=== PATIENT | male | born 1950 | race Caucasian/White ===

== ENCOUNTER 2018-06-06 20:51 | Emergency (ER) | payer MEDICARE, MEDICAID ==
[2018-06-06 21:01] VITALS: BP 154/98
--- NOTE | 2018-06-06 21:42 | UC ---
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 THINKS IT ATTACHED EARLIER TODAY HE WAS OUTSIDE DOING YARDWORK. GIRLFRIEND ATTEMPTED TO REMOVE IT BUT TICK PARTS REMAINING EMBEDDED. - History of Current Complaint Chief Complaint: UCSkin Time Seen by Provider: 06/06/18 21:15 Stated Complaint: TICK BITE Hx Obtained From: Patient Onset/Duration: Lasting Hours, Still Present Timing: Constant Onset Severity: Mild Current Severity: Mild Pain Intensity: 0 Pain Scale Used: 0-10 Numeric Location: Discrete - LEFT ANTERIOR CHEST Character: Redness, Painful Aggravating Factor(s): Touch Alleviating Factor(s): Nothing Associated Signs & Symptoms: Positive: Tenderness. Negative: Nausea, Fever Related History: Insect Bite/Sting - Allergy/Home Medications Allergies/Adverse Reactions: Allergies Allergy/AdvReac Type Severity Reaction Status Date / Time Penicillins Allergy Rash Verified 06/06/18 21:00 Home Medications: Home Medications Levothyroxine TAB* [Synthroid 100 MCG TAB*] 100 mg PO DAILY 06/06/18 [History Confirmed 06/06/18] Pravastatin Sodium 20 mg PO DAILY 06/06/18 [History Confirmed 06/06/18] PMH/Surg Hx/FS Hx/Imm Hx Endocrine History: Hypothyroidism, Dyslipidemia - Surgical History Surgical History: None Surgery Procedure, Year, and Place: DENIES - Family History Known Family History: Positive: Non-Contributory - Social History Alcohol Use: Weekly Substance Use Type: Marijuana Substance Use Comment - Amount & Last Used: rarely Smoking Status (MU): Never Smoked Tobacco Review of Systems All Other Systems Reviewed And Are Negative: Yes Constitutional: Positive: Negative Skin: Positive: Other - TICK ATTACHMENT SITE LEFT ANTERIOR CHEST Respiratory: Positive: Negative Cardiovascular: Positive: Negative Gastrointestinal: Positive: Negative Musculoskeletal: Positive: Negative Neurological: Positive: Negative Physical Exam Triage Information Reviewed: Yes Appearance: Well-Appearing, No Pain Distress, Well-Nourished Vital Signs: Initial Vital Signs Temp 98 F 06/06/18 20:52 Pulse 58 06/06/18 20:52 Resp 16 06/06/18 20:52 BP 154/98 06/06/18 20:52 Pulse Ox 98 06/06/18 20:52 Vital Signs Reviewed: Yes Eyes: Positive: Conjunctiva Clear ENT: Positive: Hearing grossly normal Neck: Positive: Supple Respiratory: Positive: No respiratory distress, No accessory muscle use Cardiovascular: Positive: Pulses Normal Abdomen Description: Positive: Soft Musculoskeletal: Positive: No Edema Neurological: Positive: Alert Psychological: Positive: Age Appropriate Behavior Skin: Positive: Other - TICK ATTACHMENT SITE LEFT ANTERIOR CHEST WITH RETAINED TICK PARTS AND 2CM SURROUNDING AREA OF LOCAL ERYTHEMA. Course/Dx - Course Course Of Treatment: COUNSELED PT EXTENSIVELY ON LOW RISK OF BLAS LYME DISEASE FROM THIS TICK. TICK WAS NOT ENGORGED SO UNLIKELY TO HAVE BEEN ATTACHED FOR REQUISITE AMOUNT OF TIME TO TRANSMIT DISEASE. NO INCREASED RISK OF DEVELOPING LYME WITH RETAINED TICK PARTS. NO INDICATION TO REMOVE THEM HOWEVER PT PREFERS I REMOVE THEM. TICK PARTS ENTIRELY REMOVED USING 18 GAUGE NEEDLE AND SPLINTER FORCEPS. USE TICK TWISTER TO HELP REMOVE ANY FUTURE TICKS. KEEP THE AREA CLEAN AND BE VIGILANT OF SX OVER THE NEXT 4-6 WEEKS. PT DOES NOT MEET CRITERIA FOR PROPHYLAXIS WITH DOXY. ALL QUESTIONS ANSWERED AND PT COMFORTABLE WITH CAREFUL OBSERVATION AT HOME. - Diagnoses Provider Diagnosis: Tick bite of chest wall Discharge - Sign-Out/Discharge Documenting (check all that apply): Patient Departure All imaging exams completed and their final reports reviewed: No Studies - Discharge Plan Condition: Stable Disposition: HOME Patient Education Materials: Tick Bite (ED) Referrals: Thomas Talamantes MD [Primary Care Provider] - If Needed Additional Instructions: APPLY A THIN LAYER OF ANTIBIOTIC OINTMENT TO THE AREA TWICE DAILY UNTIL HEALED. I RECOMMEND AVOIDING NEOMYCIN CONTAINING PRODUCTS THEY ARE HIGHLY ALLERGENIC. The Infectious Disease Society of [place] (IDSA) does not generally recommend antimicrobial prophylaxis for prevention of Lyme disease after a recognized tick bite. However, in areas that are highly endemic for Lyme disease, a single dose of doxycycline may be offered to adult patients (200 mg) who are not and to children older than 8 years of age (4 mg/kg up to a maximum dose of 200 mg) when all of the following circumstances exist: CRITERIA FOR RECEIVING PROPHYLACTIC TREATMENT FOR LYME DISEASE 1) TICK ATTACHED FOR AT LEAST 36 HRS 2) TICK IS AN ADULT OR [place] DEER TICK 3) YOU LIVE IN AN AREA WHERE LYME DISEASE IS PREVALENT (i.e., [place], [place], [place], , [place] , [place], [place], [place], [place], [place], [place], [place], [place], [place]) 4) YOU HAVE NO CONTRAINDICATION TO THE MEDICATION (DOXYCYCLINE) 5) PROPHYLAXIS IS BEGUN WITHIN 72 HRS OF TICK REMOVAL SINCE YOU DO NOT MEET ALL THESE CRITERIA THERE IS NO NEED TO GIVE YOU PROPHYLACTIC ANTIBIOTICS. YOUR CHANCES OF DEVELOPING LYME DISEASE FROM THIS TICK ARE EXTREMELY SMALL. HOWEVER, 1 TICK MEANS THERE MAY HAVE BEEN OTHER TICKS OF WHICH YOU WEREN'T AWARE. SO BE VIGILANT OF YOUR SYMPTOMS AND DON'T HESITATE TO GET SEEN AGAIN IF YOU DEVELOP UNEXPLAINED FEVER, HEADACHE, JOINT PAIN, BODY ACHES, RASH OR ANY OTHER CONCERNING SYMPTOMS. Antibiotic treatment following a tick bite is not recommended as a means to prevent anaplasmosis, babesiosis, ehrlichiosis, or [place] spotted fever. There is no evidence this practice is effective, and it may simply delay onset of disease. Instead, persons who experience a tick bite should be alert for symptoms suggestive of tickborne illness and consult a physician if fever, rash, headache or other symptoms of concern develop. - Billing Disposition and Condition Condition: STABLE Disposition: Home
== END 2018-06-06 21:48 | disposition home or self-care (01) ==
LOC: UCEAST 20:51
DX: S20.362A Insect bite (nonvenomous) of left front wall of thorax, initial encounter (principal); W57.XXXA Bitten or stung by nonvenomous insect and other nonvenomous arthropods, initial encounter; Y93.H9 Activity, other involving exterior property and land maintenance, building and construction; Y92.9 Unspecified place or not applicable; E03.9 Hypothyroidism, unspecified; E78.5 Hyperlipidemia, unspecified; Z88.0 Allergy status to penicillin
CPT/HCPCS: 99211; G0463

== ENCOUNTER 2022-04-03 13:53 | Inpatient (IN) ==
[2022-04-03] MEDS ORDERED: Al Hydrox/Mg Hydrox/Simet LIQ 30 ML UDC PO PRN ×2 (18:15→22:04)
[2022-04-04] MEDS: Vitamin THERAPEUTIC TAB PO SCH (08:16)
[2022-04-04] MEDS ORDERED: Vitamin THERAPEUTIC TAB PO SCH (09:00)
[2022-04-04] MEDS ORDERED: Pravastatin 20 mg TAB (NF) PO SCH (09:00)
[2022-04-04 10:43] LABS: ABS Monocytes 0.5 10^3/ul (0-0.8); ABS Neutrophils 5.9 10^3/ul (1.5-7.7); Eosinophil % 0.5 %; Hematocrit 41 % (42-52); Hemoglobin 13.7 g/dL (14.0-18.0); Lymphocyte % 12.8 %; Mean Corpuscular HGB Conc 33 g/dL (31-36); Mean Corpuscular Hemoglobin 32 pg (27-31); Mean Corpuscular Volume 95 fL (80-94); Mean Platelet Volume 8.1 fL (7.4-10.4); Platelet Count 253 10^3/uL (150-450); Red Blood Count 4.31 10^6 /uL (4.18-5.48); Red Cell Distribution Width 13 % (10-15); White Blood Count 7.5 10^3/uL (3.5-10.8)
[2022-04-04 11:40] LABS: Albumin/Globulin Ratio 1.7 (1-3); Calcium 9.2 mg/dL (8.6-10.3); Creatinine, Serum 1.03 mg/dL (0.67-1.17); Globulin 2.3 g/dL (2-4); Potassium 4.3 mmol/L (3.5-5.0); Total Bilirubin 1.1 mg/dL (0.2-1.0); Total Protein 6.3 g/dL (6.4-8.9); eGFR CKD-EPI 78.6 (>60)
[2022-04-04 11:57] LABS: Free T4 1.38 ng/dL (0.61-1.12); TSH Ultra Thyroid Stim Horm 2.07 mcIU/mL (0.34-5.60)
[2022-04-05] MEDS: Vitamin THERAPEUTIC TAB PO SCH (08:52)
[2022-04-06 08:25] LABS: HDL Cholesterol 47.4 mg/dL
[2022-04-06] MEDS: Vitamin THERAPEUTIC TAB PO SCH (08:50)
[2022-04-07] MEDS: Vitamin THERAPEUTIC TAB PO SCH (08:53)
[2022-04-08] MEDS: Vitamin THERAPEUTIC TAB PO SCH (08:37)
[2022-04-09] MEDS: Vitamin THERAPEUTIC TAB PO SCH (08:15)
[2022-04-10] MEDS: Vitamin THERAPEUTIC TAB PO SCH (08:18)
[2022-04-10] MEDS ORDERED: Psyllium PAK PO PRN (10:36)
[2022-04-11] MEDS: Vitamin THERAPEUTIC TAB PO SCH (08:29)
[2022-04-12] MEDS: Vitamin THERAPEUTIC TAB PO SCH (08:27)
[2022-04-13] MEDS: Vitamin THERAPEUTIC TAB PO SCH (07:51)
[2022-04-14] MEDS: Vitamin THERAPEUTIC TAB PO SCH (08:31)
[2022-04-14] MEDS: Psyllium PAK PO PRN (20:16)
[2022-04-15] MEDS: Vitamin THERAPEUTIC TAB PO SCH (08:49)
[2022-04-15] MEDS: Psyllium PAK PO PRN (15:13)
[2022-04-16] MEDS: Vitamin THERAPEUTIC TAB PO SCH (08:14)
[2022-04-16] MEDS: Psyllium PAK PO PRN (20:50)
[2022-04-17] MEDS: Vitamin THERAPEUTIC TAB PO SCH (07:57)
[2022-04-17] MEDS: Psyllium PAK PO PRN (20:43)
[2022-04-18] MEDS: Vitamin THERAPEUTIC TAB PO SCH (08:43)
[2022-04-18 09:49] VITALS: BP 114/70
== END 2022-04-18 11:58 | disposition home or self-care (01) | DRG 885 ==
LOC: ED 13:53 → EDHOLD 20:05 → ED 20:07 → BSU 22:21
PROVIDERS: ADMIT Psychiatry & Neurology Psychiatry; ATTEND Psychiatry & Neurology Psychiatry